=== PATIENT | female | born 1985 | race American Indian/Alaskan Native ===

== ENCOUNTER 2019-09-13 11:12 | Outpatient (CLI) | payer OTHER | END 2019-09-13 11:53 | disposition home or self-care (01) | LOC: NST 11:12 | PROVIDERS: ATTEND Obstetrics & Gynecology | DX: Z34.83 Encounter for supervision of other normal pregnancy, third trimester (principal) ==

== ENCOUNTER 2019-09-21 11:40 | Outpatient (CLI) | payer OTHER | END 2019-09-21 13:24 | disposition home or self-care (01) | LOC: NST 11:40 | PROVIDERS: ATTEND Obstetrics & Gynecology | DX: Z34.83 Encounter for supervision of other normal pregnancy, third trimester (principal) ==

== ENCOUNTER 2019-09-21 13:19 | Inpatient (IN) | payer OTHER ==
[~2019-09-21] VITALS: Ht 165.1 cm; Wt 78.0 kg
[2019-10-03] MEDS ORDERED: PRENATAL TABLE1 EAC1 PO (06:30)
== END 2019-10-05 12:50 | disposition home or self-care (01) | DRG 807 ==
LOC: LDR 10-03 05:26 → OB/GYN 10-03 16:09
PROVIDERS: ADMIT Obstetrics & Gynecology Maternal & Fetal Medicine; ATTEND Obstetrics & Gynecology Maternal & Fetal Medicine
PROC: 10E0XZZ Delivery of Products of Conception, External Approach (ICD-10-PCS; principal; 2019-10-03)
PROC: 4A1HXFZ Monitoring of Products of Conception, Cardiac Rhythm, External Approach (ICD-10-PCS; 2019-10-03)
PROC: 3E033VJ Introduction of Other Hormone into Peripheral Vein, Percutaneous Approach (ICD-10-PCS; 2019-10-03)
PROC: 0W8NXZZ Division of Female Perineum, External Approach (ICD-10-PCS; 2019-10-03)
PROC: 0HQ9XZZ Repair Perineum Skin, External Approach (ICD-10-PCS; 2019-10-03)
DX: O70.0 First degree perineal laceration during delivery (principal); Z37.0 Single live birth; Z3A.38 38 weeks gestation of pregnancy; Z20.828 Contact with and (suspected) exposure to other viral communicable diseases

== ENCOUNTER 2019-09-25 09:05 | Outpatient (CLI) | payer OTHER | END 2019-09-25 09:49 | disposition home or self-care (01) | LOC: NST 09:05 | PROVIDERS: ATTEND Obstetrics & Gynecology | DX: Z34.83 Encounter for supervision of other normal pregnancy, third trimester (principal) ==

== ENCOUNTER 2019-10-02 11:37 | Outpatient (CLI) | payer OTHER ==
[2019-10-03] MEDS ORDERED: PRENATAL TABLE1 EAC1 PO (06:30)
== END 2019-10-02 12:25 | disposition home or self-care (01) ==
LOC: NST 11:37
PROVIDERS: ATTEND Obstetrics & Gynecology
DX: Z34.83 Encounter for supervision of other normal pregnancy, third trimester (principal)